=== PATIENT | female | born 1945 | race Caucasian/White ===

== ENCOUNTER → 2018-07-15 | Outpatient (CLI) | payer MEDICARE ==
--- NOTE | 2018-07-15 12:51 | XR ---
EXAMINATION TYPE: XR chest 2V DATE OF EXAM: 07/15/2018 COMPARISON: NONE TECHNIQUE: PA and lateral views submitted. HISTORY: Shortness of breath FINDINGS: The lungs are clear and there is no pneumothorax, pleural effusion, or focal pneumonia. Hypertrophi c and degenerative changes of the spine. Heart is mildly prominent. Atherosclerotic change aorta. IMPRESSION: 1. No acute process.
== END ==
LOC: RADXRMAIN 11:31
PROVIDERS: ATTEND Internal Medicine
DX: R05 Cough (principal)
CPT/HCPCS: 71046

== ENCOUNTER → 2018-08-02 | Outpatient (CLI) | payer MEDICARE ==
--- NOTE | 2018-08-03 08:02 | ECHOF ---
Referral Reason:Shortnss of Breath R06.02 MEASUREMENTS -------- HEIGHT: 154.9 cm WEIGHT: 64.0 kg BP: IVSd: 1.1 cm (0.6 - 1.1) LVIDd: 3.0 cm (3.9 - 5.3) LVPWd: 1.1 cm (0.6 - 1.1) IVSs: 1.4 cm LVIDs: 1.8 cm LVPWs: 1.3 cm LAESV Index (A-L): 23.59 ml/m Ao Diam: 3.2 cm (2.0 - 3.7) AV Cusp: 2.0 cm (1.5 - 2.6) LA Diam: 2.4 cm (2.7 - 3.8) MV E Mehran: 0.60 m/s MV DecT: 295 ms MV A Mehran: 0.97 m/s MV E/A Ratio: 0.62 RAP: 5.00 mmHg RVSP: 10.41 mmHg FINDINGS -------- Sinus rhythm. This was a technically adequate study. The left ventricular size is normal. There is borderline concentric left ventricular hypertrophy. Overall left ventricular systolic function is normal with, an EF between 55 - 60 %. The right ventricle is normal in size and function. Normal LA size by volume 22+/-6 ml/m2. The right atrium is normal in size. There is mild aortic valve sclerosis. There is no evidence of aortic regurgitation. There is no e vidence of aortic stenosis. The mitral valve leaflets are mildly thickened. There is trace to mild mitral regurgitation. Trace tricuspid regurgitation present. The pulmonic valve was not well visualized. The aortic root size is normal. Normal inferior vena cava with normal inspiratory collapse consistent with estimated right atrial pre ssure of 5 mmHg. There is no pericardial effusion. CONCLUSIONS -------- 1. Sinus rhythm. 2. This was a technically adequate study. 3. The left ventricular size is normal. 4. There is borderline concentric left ventricular hypertrophy. 5. Overall left ventricular systolic function is normal with, an EF between 55 - 60 %. 6. Normal LA size by volume 22+/-6 ml/m2. 7. There is mild aortic valve sclerosis. 8. The mitral valve leaflets are mildly thickened. 9. There is trace to mild mitral regurgitation. 10. Trace tricuspid regurgitation present. 11. The pulmonic valve was not well visualized. 12. The aortic root size is normal. 13. There is no pericardial effusion. MILITARY TECHNICIAN: Johnson Stone RDCS
== END ==
LOC: RADECHMAIN 12:58
PROVIDERS: ATTEND Internal Medicine
DX: I34.0 Nonrheumatic mitral (valve) insufficiency (principal); I35.8 Other nonrheumatic aortic valve disorders
CPT/HCPCS: 93306

== ENCOUNTER → 2019-06-11 | Outpatient (CLI) | payer MEDICARE ==
--- NOTE | 2019-06-11 15:43 | CTL ---
EXAMINATION TYPE: CT Low Dose Lung DATE OF EXAM ORDERED: 06/11/2019 HISTORY: 73-year-old female Personal history of tobacco use. Lung cancer screening CT DLP: [address] CTDI: 1.72 mGy Automated exposure control for dose reduction was used. SCREENING VISIT: Baseline COMPARISON: Radiograph 07/15/2018 TECHNIQUE: Low dose computed tomography scan was performed through the chest at 1 mm thick sections and reconstructed images in the coronal/sagittal plane. Additional coronal MIP reconstruction performed. CT DIAGNOSTIC QUALITY: Satisfactory FINDINGS: 1.6 cm nodularity within the posterior lateral aspect of the left breast can be further evaluated with diagnostic mammogram. Heart normal size without pericardial effusion. Coronary vessel calcifications are present. 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 Mild to moderate atherosclerotic arch calcifications with conventional arch vessel branching anatomy. Upper descending thoracic aorta is ectatic at 3.1 cm. 3.4 cm aneurysm lower descending thoracic aorta. Large caliber to the main right and left pulmonary arteries measuring up to 2.8 cm. No thoracic lymphadenopathy. Evaluation of the lungs show strandy atelectasis at the bases, particularly the inferior lingula. There is mild diffuse bronchial wall thickening. There is endobronchial opacification within right lower lobe basilar segmental bronchus, refer to axial image 185 that could be secondary to a 6 mm or larger pulmonary nodule versus mucous plugging. 7 mm subpleural pulmonary nodule peripheral right midlung, axial image 151. 3 mm anterior left upper lobe pulmonary nodule, axial image 63. 3 mm left upper lobe pulmonary nodule peripherally axial image 73. No consolidation or pleural effusion. Visualized upper abdomen shows no gross abnormality. Bones: There is a vertebral body fracture of T6 with anterior compression of 75% and is situated thoracic kyphosis. No retropulsion seen into the spinal canal. This appears to be new from 07/15/2018. IMPRESSION: 1. LungRADS 3 - probably benign; a few scattered pulmonary nodules measuring up to 7 mm. Additional endobronchial lesion versus mucous plugging within a segmental branch of the basilar right lower lobe. 2. Very mild emphysematous change. Possible underlying pulmonary arterial hypertension. 3. Aneurysmal thoracic aorta (ascending 4.0 cm and lower descending 3.4 cm). 4. 1.6 cm nodularity posterior lateral left breast. 5. Age indeterminate T6 vertebral compression collapse. This appears to be new from 07/15/2018. Clinically correlate. RECOMMENDATION: 1. Six-month follow-up low-dose CT chest to reassess the pulmonary nodules and right lower lobe endobronchial opacity. 2. Diagnostic mammogram and possible ultrasound for the left breast finding. 3. Smoking cessation. 4. Correlate as to the age of the patient's T6 vertebral body fracture. MTDD
== END | disposition home or self-care (01) ==
LOC: RADCTMAIN 14:20
PROVIDERS: ATTEND Internal Medicine
DX: Z12.2 Encounter for screening for malignant neoplasm of respiratory organs (principal); R91.8 Other nonspecific abnormal finding of lung field; I71.2 Thoracic aortic aneurysm, without rupture; Z87.891 Personal history of nicotine dependence